=== PATIENT | female | born 1965 | race Caucasian/White ===

== ENCOUNTER 2021-11-13 10:49 | Day surgery (SDC) | payer OTHER ==
[~2021-11-13] VITALS: Ht 157.5 cm; Wt 78.3 kg
--- NOTE | 2021-11-13 12:26 | NUR ---
11/13/21 1226 KOTA WHELAN 20MLS OF ROPIVACAINE 0.2% MIXED WITH 0.1MG OF EPI(1MG/1ML) TO CREATED A LOCAL SOLUTION OF ROPIVACAINE 0.2% WITH EPI 1:200,000. LOCAL SOLUTION POURED ONTO STERILE FIELD FOR USE DURING CASE.
== END 2021-11-13 13:51 | disposition home or self-care (01) ==
LOC: ORSCSDS 10:49
PROVIDERS: Podiatrist Foot & Ankle Surgery
PROC: 01NG0ZZ Release Tibial Nerve, Open Approach (ICD-10-PCS; principal; 2021-11-13 12:30)
DX: G57.51 Tarsal tunnel syndrome, right lower limb (principal)
CPT/HCPCS: A9270; J0171; J0690; J1100; J2250; J2405; J2704; J2795; J3010

== ENCOUNTER 2025-01-05 14:01 | Day surgery (SDC) | payer OTHER ==
[~2025-01-05] VITALS: Ht 154.9 cm; Wt 77.8 kg
[2025-01-05] VITALS (22 sets, daily range): BP systolic 98–169; BP diastolic 60–137
[~2025-01-05 14:01] MED LIST: MELO7.5
[2025-01-05] MEDS ORDERED: MULVITA PO (14:38)
--- NOTE | 2025-01-05 14:48 | NUR ---
Ambulatory in Day Surgery. History, Chart, Medications and Allergies reviewed before start of procedure. Patient confirms NPO status and agrees with scheduled surgery. Pre-Op teaching done. Pt verbalizes understanding. Patient States Post-Procedure ride home has been arranged.
--- NOTE | 2025-01-05 15:21 | NUR ---
01/05/25 1521 Saw Yancey CONFIRMED AND REVIEWED H&P, MEDCICATIONS, ALLERGIES, MEDICAL HISTORY, RESPIRATORY HISTORY, VITAL SIGNS, 3-LEAD EKG, CONSENTS, AND PHYSICIAN ORDERS. PATIENT CONFIRMS NPO STATUS AND AGREES WITH SCHEDULED PROCEDURE. MONITOR INTACT WITH CONTINUOUS PULSE OXIMETRY, CAPNOGRAPHY, 3-LEAD EKG, INTERMITTENT BP. SUPPLEMENTAL O2 TO BE TITRATED THROUGHOUT PROCEDURE TO MAINTAIN O2 SATURATION ABOVE 90%. PATIENT DETERMINED TO BE ASA APPROPRIATE FOR PROPOFOL SEDATION PRIOR TO START OF PROCEDURE BY DR. WESLEY
--- NOTE | 2025-01-05 16:35 | NUR ---
TO STEP POST COLONOSCOPY. DARIO PO WELL. VERBALIZED UNDERSTANDING OF DC INSTRUCTIONS. DC'D IV INTACT. DC'D VIA WC TO PRIVATE CAR WITH REHAB NURSE.
== END 2025-01-05 16:30 | disposition home or self-care (01) ==
LOC: ORSCMMR 14:01 → ORD 14:45 → ORSCMMR 16:30
PROVIDERS: Surgery
PROC: 0DBL8ZX Excision of Transverse Colon, Via Natural or Artificial Opening Endoscopic, Diagnostic (ICD-10-PCS; principal; 2025-01-05 14:45)
DX: K92.1 Melena (principal); K59.00 Constipation, unspecified; D12.3 Benign neoplasm of transverse colon; K57.30 Diverticulosis of large intestine without perforation or abscess without bleeding; K64.1 Second degree hemorrhoids; J45.909 Unspecified asthma, uncomplicated; I10 Essential (primary) hypertension; E78.5 Hyperlipidemia, unspecified; Z87.891 Personal history of nicotine dependence; Z79.899 Other long term (current) drug therapy; E66.9 Obesity, unspecified; Z68.34 Body mass index [BMI] 34.0-34.9, adult
CPT/HCPCS: 88305; J2704; J7120

== ENCOUNTER 2025-03-17 08:14 | Day surgery (SDC) | payer OTHER ==
[~2025-03-17] VITALS: Ht 154.9 cm; Wt 75.6 kg
[2025-03-17] VITALS (9 sets, daily range): BP systolic 129–168; BP diastolic 60–95
[~2025-03-17 08:14] MED LIST changes: -MELO7.5; +MOBIC15 MG PO; +MULVITA PO; +OZEMPIC2 MG/0.75 SC
[2025-03-17] MEDS ORDERED: Ampicillin Sod/Sulbactam Sod 3 GM in NS 100 ML IV SCH (08:15)
--- NOTE | 2025-03-17 09:07 | NUR ---
Ambulatory in Day Surgery. History, Chart, Medications and Allergies reviewed before start of procedure. Lungs clear T/O to Auscultation. Patient confirms NPO status and agrees with scheduled surgery. Pre-Op teaching done. Pt verbalizes understanding. Patient States Post-Procedure ride home has been arranged.
[2025-03-17] MEDS ORDERED: Bupivacaine 0.5% W/EPI 1:200000 SDV 30 ML Vial ONE (09:19)
[2025-03-17] MEDS ORDERED: FentaNYL Citrate 50 MCG/ML 2 ML Injection ONE ×2 (11:08→12:32)
[2025-03-17] MEDS ORDERED: Ondansetron HCl 2 MG / ML 2ML Vial ONE (11:33)
[2025-03-17] MEDS ORDERED: Dexamethasone Sod Phos 10 MG/ML 1ML VIAL ONE (11:33)
[2025-03-17] MEDS ORDERED: Rocuronium Bromide 10 MG/ML 5ML Injection IV ONE (11:41)
[2025-03-17] MEDS ORDERED: Sugammadex Sodium 200 MG/2ML SDV (100 MG/ML) ONE (11:41)
[2025-03-17] MEDS ORDERED: Prochlorperazine Edisylate 10 mg Vial IV PRN (11:50)
[2025-03-17] MEDS ORDERED: Metoclopramide HCl 5MG / ML 2ML Vial IV PRN (11:50)
[2025-03-17] MEDS ORDERED: FentaNYL Citrate 50 MCG/ML 2 ML Injection IV PRN ×2 (11:50)
[2025-03-17] MEDS ORDERED: Albuterol 2.5 MG/3 ML VIAL INH PRN (11:50)
[2025-03-17] MEDS ORDERED: HYDROmorphone HCl/Pf 1MG SYR IV PRN (11:50)
[2025-03-17] MEDS ORDERED: Ondansetron HCl 2 MG / ML 2ML Vial IV PRN (11:50)
[2025-03-17] MEDS ORDERED: OxyCODONE 5 mg/Acetamin 325 mg TABLET PO PRN (12:20)
--- NOTE | 2025-03-17 13:12 | NUR ---
Discharge instructions reviewed with patient. Patient verbalizes understanding. Copy given to patient to take home. Patient States Post-Procedure ride home has been arranged. Discharged via wheelchair to private car for ride home.
== END 2025-03-17 13:35 | disposition home or self-care (01) ==
LOC: ORSCMMR 08:14 → ORD 10:00 → ORSCMMR 13:35
PROVIDERS: Surgery
PROC: 06BY0ZC Excision of Hemorrhoidal Plexus, Open Approach (ICD-10-PCS; principal; 2025-03-17 10:00)
DX: K64.2 Third degree hemorrhoids (principal); I10 Essential (primary) hypertension; E78.5 Hyperlipidemia, unspecified; J45.909 Unspecified asthma, uncomplicated; E66.811 Obesity, class 1; Z68.31 Body mass index [BMI] 31.0-31.9, adult; Z79.85 Long-term (current) use of injectable non-insulin antidiabetic drugs; Z87.891 Personal history of nicotine dependence
CPT/HCPCS: 88304; J0295; J1100; J2405; J2704; J3010; J7120